=== PATIENT | female | born 1935 | race Caucasian/White ===

== ENCOUNTER 2023-11-05 13:00 | Outpatient (RCR) | payer MEDICARE, SELFPAY | END 2023-11-27 10:26 | disposition home or self-care (01) | LOC: HO.PTWFD 13:00 | PROVIDERS: PCP Student in an Organized Health Care Education/Training Program; Visit Provider Physician Assistant | DX: M53.3 Sacrococcygeal disorders, not elsewhere classified (principal); M25.551 Pain in right hip; M79.604 Pain in right leg | CPT/HCPCS: 97110; 97140; 97161; 97535 ==